=== PATIENT | male | born 1955 | race Caucasian/White ===

== ENCOUNTER → 2019-12-01 09:52 | Outpatient (CLI) | payer OTHER ==
[2013-08-18 08:29] VITALS: BMI 27.3
--- NOTE | ~2019-12-01 | ST ---
PATIENT:PAUL MCMANUS MEDICAL RECORD: [id number] SEX: M LOCATION:[facility] ORDER #: ADMISSION DATE: 12/01/19 AGE OF PATIENT: 64 REFERRING PHYSICIAN: INTERPRETING PHYSICIAN: RANDOLPH MEI MD DATE OF SERVICE: 12/01/2019 PROCEDURE: Nuclear stress test. INDICATION: Angina, coronary artery disease, hypertension, hyperlipidemia, and diabetes. He was exercised on standard Lexiscan protocol with 33 mCi of sestamibi injected at peak stress, 11 mCi used previously for rest images. FINDINGS: Gated SPECT reveals preserved ejection fraction at 50% with good wall motioning and thickening and brightening throughout all segments. SPECT imaging Cardiolite was used as myocardial perfusion agent. There is reversible ischemia inferiorly and apically. The degree of reversibility is moderate. The amount of myocardium involved is moderate. OVERALL IMPRESSION: This is an intermediate risk abnormal nuclear stress test. Reversible ischemia inferiorly and apically suggestive of hemodynamically significant coronary disease. TRANSINT:[id number] Voice Confirmation ID: [id number] DOCUMENT ID: [id number] RANDOLPH MEI MD CC: NESS BARR [id number] DICTATION DATE: 12/04/191814 CREDIT RISK SPECIALIST: 12/05/19 [id number] DEP CLI 12/01/19 [place] [id number] [place] [id number]
[~2019-12-01 09:52] MED LIST: ASPIRIN 81 MG E81 MG PO; EFFIENT10 MG PO; NORCO 7.5-3251 EACH PO; PRAVACHOL20 MG PO; TENORMIN25 MG PO; ZESTORETIC 20/11 TAB PO
== END | disposition home or self-care (01) ==
LOC: D.HCCARDIO 09:52
PROVIDERS: ATTEND Internal Medicine Interventional Cardiology
DX: I25.119 Atherosclerotic heart disease of native coronary artery with unspecified angina pectoris (principal)